=== PATIENT | female | born 1955 | race Caucasian/White ===

== ENCOUNTER 2017-07-09 14:59 | Observation (INO) | payer MEDICARE ==
[2017-07-09] MEDS ORDERED: Dextrose 5% in Water 1,000 ML IV PRN (15:55)
[2017-07-09] MEDS ORDERED: Dextrose 50% Abboject 50 ML SYRINGE SLOW IVP PRN (15:55)
[2017-07-09] MEDS ORDERED: traZODone HCl 50 MG TAB PO PRN (15:59)
[2017-07-09] MEDS ORDERED: Docusate 100 MG CAP PO SCH (16:00)
[2017-07-09 16:17] LABS: #Eosinphils 0.1 thou/uL (0.0-0.7); #Lymphocytes 0.9 thou/uL (1.20-3.40); #Monocytes 0.8 thou/uL (0.11-0.59); #Neutrophils 6.9 thou/uL (1.40-6.50); %Basophils 0.1 % (0.0-1.0); %Eosinophils 0.8 % (0.0-10.0); %Lymphocytes 10.7 % (21.0-51.0); %Monocytes 8.9 % (0.0-10.0); Hematocrit 31.1 % (36.0-47.0); Mean Platelet Volume 7.4 fL (7.4-10.4); Red Blood Cell (RBC) Count 3.26 mill/uL (4.20-5.40); White Blood Cell (WBC) Count 8.7 thou/uL (4.8-10.8)
--- NOTE | 2017-07-09 16:17 | CT ---
CT HEAD WITHOUT IV CONTRAST 07/09/17 HISTORY: Post fall. Known subdural hematoma. COMPARISON: 01/28/17. FINDINGS: There is a small increased density subdural collection along the left calvarium measuring 4 to 5 mm in maximal transverse dimensions. This is seen just above the level of the Sylvian fissure. Is also a very small in the AP and craniocaudal dimensions. Noted on the MRI of the brain, there is severe d ilatation of the ventricular system with diffuse cerebral volume loss. Ventriculoperitoneal shunt ca theter is again noted entering via a right parietal approach with the tip traversing the posterior b rosibel of the right lateral ventricle and terminating in the mid body of the left lateral ventricle whi ch is unchanged when compared to the MRI. There are scattered low density areas in the periventricular white matter likely related to chronic small vessel ischemic changes. There is no midline shift or mass effect. No calvarial fracture is seen. There is right lateral periorbital subcutaneous soft tissue swelling. No calvarial fracture is seen. No other interval change. IMPRESSION: 1. Very small left subdural hematoma along the inner table left calvarium just above the level of the Sylvian fissure. This is very small in size measuring 4 to 5 mm in maximal transverse dimensi ons. No additional intraparenchymal or extra-axial hemorrhage is seen. 2. Marked hydrocephalus with ventriculoperitoneal shunt catheter noted in place. This may be re lated to malfunctioning ventriculoperitoneal shunt catheter. The degree of ventricular dilatation is unchanged since study on 01/28/17. 3. Findings discussed with KIMBER Dia in the emergency department on 07/09/17 at 1606 hours. POS: [facility]
[2017-07-09 16:24] LABS: PTT 25.8 SEC (22.9-36.1); Prothrombin Time 14.8 SEC (12.0-14.7)
[2017-07-09 16:34] LABS: ALT (SGPT) 19 U/L (8-55); AST (SGOT) 30 U/L (5-34); Alkaline Phosphatase 79 U/L (40-150); Anion Gap 15 mmol/L (10-20); BUN (Urea Nitrogen) 41 mg/dL (9.8-20.1); Bilirubin, Total 0.2 mg/dL (0.2-1.2); CK (CPK) 181 U/L (29-168); Calc. Creatinine Clearance 0 mL/min (70-130); Calcium 9.5 mg/dL (7.8-10.44); Carbon Dioxide 23 mmol/L (23-31); Chloride 101 mmol/L (98-107); Estimated GFR-MDRD 13; Globulin 2.5 g/dL (2.4-3.5); Protein, Total 6.6 g/dL (6.0-8.3)
--- NOTE | 2017-07-09 16:35 | CT ---
CT CERVICAL SPINE WITHOUT IV CONTRAST 07/09/17 HISTORY: Patient post fall and known subdural hematoma. Patient is transferred from outside institution. TECHNIQUE: Contiguous axial CT images are obtained through the cervical spine from the skull to the T2-3 level. Sagittal and coronal reformat images are provided. FINDINGS: No fracture or subluxation is seen involving the cervical spine. The prevertebral soft tissues are w ithin normal limits. Vascular calcifications are seen in the carotid arteries. Calcification seen in each thyroid gland with suggestion of small hypodense nodules in each thyroid gland. There are a few approximately 3 mm pulmonary nodules in the visualized right upper lobe with minimal pleural and parenchymal scarring at each lung apex. IMPRESSION: 1. Suggestion of small hypodense nodules in each lobe of the thyroid gland. Nonemergent thyroid ultrasound is suggested. 2. No fracture or subluxation involving the cervical spine. 3. Nonspecific 3 mm pulmonary nodules in the right upper lobe. POS: [facility]
[2017-07-09 16:38] LABS: Troponin I 0.049 ng/mL (< 0.028)
[2017-07-09] MEDS: Carvedilol 25 MG TAB PO SCH (18:05)
[2017-07-09] MEDS: Acetaminophen 500 MG TAB PO PRN (19:03)
[2017-07-09 19:36] VITALS: BMI 19.1
[2017-07-09] MEDS: Gabapentin 100 MG CAP PO SCH (20:21)
--- NOTE | 2017-07-09 21:22 | HP ---
Luis Enrique Turner PA-C, dictating for Sander Turner DO DATE OF SERVICE: 07/09/2017 CHIEF COMPLAINT: Transfer from [place], status post fall. HISTORY OF PRESENT ILLNESS: This is a 61-year-old female, who presented to the ED over at [facility] status post fall and complain of head pain. Patient walks around sidewalk, but she fell. She did not recall how she fainted or recalls her fall. At that time, she hit her head when she f ell, noted an intermittent headache. She also has been noting increasing amount of falls in the pas t couple weeks. Denies any neuro deficits, tingling, or sensation loss. PAST MEDICAL HISTORY: Includes chronic kidney disease, hypertension, regular heart rate. PAST SURGICAL HISTORY: Includes AV fistula as well as the [employer] shunt placement. REVIEW OF SYSTEMS: All 10 systems reviewed, otherwise stated in HPI were negative. SOCIAL HISTORY: The patient denies any alcohol, drug, or smoking history. PSYCHIATRIC HISTORY: Includes anxiety and bipolar disorder. PHYSICAL EXAMINATION: VITAL SIGNS: Blood pressure 137/76, heart rate 76, respiratory rate of 18, 98.4 on temperature, 5/1 0 pain. O2 99% on room air. GENERAL: No acute distress at the time. HEENT: Right periorbital ecchymosis. Normocephalic. No JVD, no masses. Pupils equal, round, reac tive. No cervical spine tenderness. RESPIRATORY: Clear bilaterally. CARDIOVASCULAR: S1, S2, regular rate and rhythm. ABDOMEN: Soft, nontender, nondistended. EXTREMITIES: Upper extremity on the left has some ecchymosis, bruising. The patient noted there wa s an old lower extremities bruising as well on the left lateral thigh. Positive pulses throughout. No edema. SKIN: Warm and dry. NEUROLOGIC: GCS of 15. Cranial nerves intact. RADIOLOGIC FINDINGS: Showed left subdural hematoma, cervical spine films were negative. LABORATORY FINDINGS: WBC of 8.7, hemoglobin 10.4, hematocrit 31.1, platelet count 173. Chemistries showed sodium of 135, potassium 4.4, chloride 111, bicarbonate 23, BUN 41, creatinine 3.61, glucose 98. Coag: PT 14.8, INR 1.1, PTT 25.8. ASSESSMENT: 1. Status post fall. 2. Subdural hematoma on the left. 3. History of chronic kidney disease, history of hypertension. PLAN: Bring to observation. We will have Neurosurgery review her images. She remains neurological ly intact, most likely will be discharged home tomorrow with follow up with her primary care doctor. Otherwise, the patient has been seen by Dr. Turner at the time of dictation and agrees with the abo ve plan. We will also initiate deep venous thrombosis and gastritis prophylaxis.
[2017-07-10 05:18] LABS: Anion Gap 12 mmol/L (10-20); BUN (Urea Nitrogen) 42 mg/dL (9.8-20.1); Calc. Creatinine Clearance 13 mL/min (70-130); Calcium 8.7 mg/dL (7.8-10.44); Carbon Dioxide 25 mmol/L (23-31); Chloride 102 mmol/L (98-107); Estimated GFR-MDRD 13
[2017-07-10 05:33] LABS: Band 1 % (5-11); Hematocrit 27.7 % (36.0-47.0); Mean Platelet Volume 7.5 fL (7.4-10.4); Neutrophil 59 % (42-75); Red Blood Cell (RBC) Count 2.87 mill/uL (4.20-5.40); White Blood Cell (WBC) Count 7.1 thou/uL (4.8-10.8)
--- NOTE | 2017-07-10 06:19 | CON ---
DATE OF CONSULTATION: 07/09/2017 Nadir Amin PA-C, dictating for Fahad Gonsalez MD The is a 50 initial patient consult in which greater than 50% of the exam was spent in counseling and coordinating patient's care. Remainder of the exam was spent in review of patient's medical records and appropriate imaging studies. CHIEF COMPLAINT: Status post fall with headache and left frontal subdural hematoma. HISTORY OF PRESENT ILLNESS: Mr. Martinez is a pleasant 61-year-old female who presents to the [facility] with complaints of headache after a fall. Currently, the patient was walking into a doctor's appointment having today and her legs gave away causing her to fall on her right face. The patient is currently on [address] in the emergency room shows less than 5 mm left frontal subdural hematoma. Neurosurgery was asked to consult regarding this. On CT scan, the patient was found to have less than 5 mm right frontal subdural hematoma with a stable ventriculomegaly and stable placement of right frontal shunt. Neurosurgery was asked to consult regarding the subdural hematoma. PHYSICAL EXAMINATION: The patient is awake, alert, and appropriate. She is oriented x3. Her GCS currently is 15. She does have superficial ecchymosis surrounding the right eye. Her pupils are equal, round, and reactive bilaterally. She has no tenderness to palpation along the midline of the cervical spine. She has full strength in the bilateral upper and bilateral lower extremities. Follows commands equally in all 4 extremities. Gait is not tested, although, she does have a cane by that side. She is able to properly define an island and is able to correctly identify a writing pen and describe its purpose. IMPRESSION: Status post fall, headache and left frontal subdural hematoma. PLAN: I have discussed the patient's case with Dr. Gonsalez. Our Trauma colleagues will admit the patient. We will plan for a repeat head CT in the morning. At this time, the patient is stable neurosurgically, so neurosurgical intervention should not be required tomorrow and it is not required at all tonight. She may have a regular diet. Her head of bed should remain elevated at 30 degrees at all times. She will be on the surgical floor. There is no need for cervical spine collar, she does not complain of neck pain, cervical spine CT is negative for acute fractures. We will check back on a head CT in the morning. Please call with any questions or change in patient's neurologic status. MTDD
[2017-07-10] MEDS: Acetaminophen 500 MG TAB PO PRN (06:50)
[2017-07-10] MEDS ORDERED: FLU VACC QS2017-18 36 mo. & older 0.5 ML SYRINGE IM ONE (09:00)
[2017-07-10] MEDS: Gabapentin 100 MG CAP PO SCH (09:12)
[2017-07-10] MEDS: Carvedilol 25 MG TAB PO SCH (09:12)
--- NOTE | 2017-07-10 09:22 | CT ---
PRELIMINARY REPORT/[facility]/EMERGENCY AFTER HOURS PROCEDURE: EXAM: CT Head Without Intravenous Contrast EXAM DATE/TIME: 07/10/2017 6:22 AM CLINICAL HISTORY: 61 years old, female; Signs and symptoms; Other: F/u sdh; Prior surgery; Surgery date: 6+ months; [facility] type: Shunt; Additional info: Pt C/O headache; F/u sdh TECHNIQUE: Axial computed tomography images of the head/brain without intravenous contrast. COMPARISON: No relevant prior studies available. FINDINGS: Brain: Tiny left frontal subdural hematoma measuring 3 mm in thickness. This is on report from 07/09 but images are not available for direct comparison. Description is similar to today's exam. Comparison with previous films would be helpful to assess for interval change. No significant white matter disease. Ventricles: Marked ventriculomegaly with shunt catheter entering the right parietal lobe and tip in the left jugular system. Bones/joints: Unremarkable. No acute fracture. Soft tissues: Unremarkable. Sinuses: Unremarkable as visualized. No acute sinusitis. Mastoid air cells: Unremarkable as visualized. No mastoid effusion. IMPRESSION: 1. Tiny left frontal subdural hematoma measuring 3 mm in thickness. This is described on report from 07/09/2017 but images are not available for direct comparison. Description is similar to today's ex am. Comparison with previous films would be helpful to assess for interval change. 2. Marked ventriculomegaly with shunt catheter entering the right parietal lobe and tip in the left jugular system. Thank you for allowing us to participate in the care of your patient. Dictated and Authenticated by: Loraine Peace MD 07/10/2017 7:13 AM Central Time ([place] \T\ [place]) FINAL REPORT CT HEAD NONCONTRAST: COMPARISON: Previous day. FINDINGS/IMPRESSION: I agree with the above-provided preliminary interpretation. Stable minimal extraaxial hemorrhage overlying the lateral left frontal convexity. Marked ventriculomegaly remains with indwelling right parietal approach ventriculostomy. POS: [facility]
--- NOTE | 2017-07-10 11:10 | PRG ---
DATE OF SERVICE: 07/10/2017 This is a 30 minute initial hospital visit note in which 30 minutes were spent in reviewing the imag ing, record, evaluation and examination of the patient, and formulation of a plan. Greater than 50% of the time was spent in counseling on Allyson Martinez. CHIEF COMPLAINT: Small left acute subdural hematoma, status post fall. HISTORY OF PRESENT ILLNESS: Ms. Martinez is a very pleasant 61-year-old woman. She has a history of hydrocephalus with right-sided parietal ventriculoperitoneal shunting in the remote past. Her imagi ng is stable in that regard. She fell and sustained right-sided facial injury with a small left-cecelia ed acute subdural hematoma in the frontal region. This is stable on repeat head CT. This morning s he is neurologically intact with a GCS of 15. She has no tenderness to palpation over her shunt. S he has no neurological issues. I should note as well as CT of her cervical spine was negative for a cute abnormality and she has denied cervicalgia. IMPRESSION AND PLAN: At this point, we will allow for dismissal for the patient. I would recommend abstaining from aspirin for the next 1 month. We will arrange followup in my clinic. I am very pl eased with how she is doing. DIAGNOSES: 1. Acute subdural hematoma. 2. History of shunt.
[2017-07-10 11:57] VITALS: TEMP 98.2
[2017-07-10] MEDS ORDERED: Scopolamine 1.5 mg/72 hour Patch TD SCH (12:00)
[2017-07-10 15:50] VITALS: BP 140/69
== END 2017-07-10 18:30 | disposition home or self-care (01) ==
LOC: ERS 14:59 → SURG A 16:14
PROVIDERS: ADMIT Surgery; ATTEND Surgery
DX: S06.5X9A Traumatic subdural hemorrhage with loss of consciousness of unspecified duration, initial encounter (principal); R51 Headache; N18.6 End stage renal disease; I10 Essential (primary) hypertension; Z79.899 Other long term (current) drug therapy; Z98.2 Presence of cerebrospinal fluid drainage device; Z99.2 Dependence on renal dialysis; Z91.81 History of falling
CPT/HCPCS: 70450 ×2; 72125; 80048; 80053; 82550; 82553; 83735; 84484; 85025 ×2; 85610; 85730; 97139 ×3; 99285; G0008; G0378; G8978; G8979; G8980; G8987; G8988; G8989; Q2036; 36415; 90471; 90682

== ENCOUNTER 2017-08-06 13:40 | Outpatient (CLI) | payer MEDICARE ==
--- NOTE | 2017-08-06 14:35 | CT ---
CT OF BRAIN PERFORMED WITHOUT CONTRAST ENHANCEMENT: History: Follow up of subdural hematoma. Comparison: 07-10-17 FINDINGS: There is marked ventricular dilatation with a shunt catheter in place. The degree of dilatation is si milar to what was seen on the previous exam. The tiny left lateral frontal convexity subdural hematoma appears to have resolved. IMPRESSION: 1. Stable ventriculomegaly. 2. Resolution of the tiny left lateral frontal convexity subdural hematoma. POS: [facility]
== END 2017-08-06 13:41 | disposition home or self-care (01) ==
LOC: TBSIIMAG 13:40
PROVIDERS: ATTEND Surgery
DX: S06.5X0A Traumatic subdural hemorrhage without loss of consciousness, initial encounter (principal); G93.89 Other specified disorders of brain
CPT/HCPCS: 70450